=== PATIENT | male | born 1995 | race Native Hawaiian/Other Pacific Islander ===

== ENCOUNTER 2018-03-01 11:10 | Emergency (ER) | payer OTHER ==
[2018-03-01 11:31] VITALS: TEMP 98.4; BMI 22.6
--- NOTE | 2018-03-01 12:11 | ED PDOC ---
HPI: CCC, URI, Sore Throat Time Seen by Provider: 03/01/18 11:30 Chief Complaint (Nursing): ENT Problem Chief Complaint (Provider): Sore throat History Per: Patient History/Exam Limitations: no limitations Onset/Duration Of Symptoms: Days (x2) Current Symptoms Are (Timing): Still Present Location Of Pain: Throat Sick Contacts (Context): None Associated Symptoms: Fever (subjective), Cough (dry). denies: Vomiting Additional Complaint(s): 22 year old male with no significant past medical history presents to the ED complaining of sore throat onset 2 days. He reports cough and a subjective fever yesterday that is no longer present. He denies dyspnea, vomiting, abdominal pain, any sick family members, pain medication or any other medical complaint. PMD: none provided. Past Medical History Reviewed: Historical Data, Nursing Documentation, Vital Signs Vital Signs: Last Vital Signs Temp 98.4 F 03/01/18 11:31 Pulse 84 03/01/18 13:26 Resp 17 03/01/18 13:26 BP 117/64 03/01/18 13:26 Pulse Ox 99 03/01/18 13:26 - Medical History PMH: No Chronic Diseases - Surgical History Surgical History: No Surg Hx - Family History Family History: States: Unknown Family Hx - Social History Current smoker - smoking cessation education provided: No Ex-Smoker (has not smoked in the last 12 months): No Alcohol: None Drugs: Denies - Allergies Allergies/Adverse Reactions: Allergies Allergy/AdvReac Type Severity Reaction Status Date / Time No Known Allergies Allergy Verified 03/01/18 11:52 Curb-65 Severity Score - CURB-65 Severity Score Confusion: No Bun >19mg/dl (>7mmol/L): No Respiratory Rate greater than/equal to 30: No Systolic BP <90 or Diastolic BP less than/equal 60mmHg: No Curb-65 Score: 0 Percentage 30-day mortality: 0.6% Review of Systems ROS Statement: Except As Marked, All Systems Reviewed And Found Negative Constitutional: Positive for: Fever (subjective) ENT: Positive for: Throat Pain (sore) Respiratory: Positive for: Cough. Negative for: Shortness of Breath Gastrointestinal: Negative for: Vomiting, Abdominal Pain Physical Exam - Reviewed Nursing Documentation Reviewed: Yes Vital Signs Reviewed: Yes - Physical Exam Appears: Positive for: Non-toxic, No Acute Distress Head Exam: Positive for: ATRAUMATIC, NORMOCEPHALIC Skin: Positive for: Normal Color, Warm, Dry Eye Exam: Positive for: Normal appearance, EOMI, PERRL ENT: Positive for: Pharyngeal Erythema (bilateral). Negative for: Tonsillar Exudate Cardiovascular/Chest: Positive for: Regular Rate, Rhythm Respiratory: Positive for: Normal Breath Sounds. Negative for: Respiratory Distress Gastrointestinal/Abdominal: Positive for: Normal Exam Extremity: Positive for: Normal ROM Neurologic/Psych: Positive for: Alert, Oriented - ECG O2 Sat by Pulse Oximetry: 98 (RA) Pulse Ox Interpretation: Normal Medical Decision Making Medical Decision Making: Time: 12:05 Initial Impression: 22 y/o male with sore throat Initial Plan: --rapid strep Time: 13:16 --Rapid strep was negative. Diagnosis viral infection. Patient medically stable for discharge home, return to ED if symptoms persist and follow up with PMD. ---- Scribe Attestation: Documented by Ailyn Veliz, acting as a scribe for Tyesha Brown MD Provider Scribe Attestation: All medical record entries made by the Scribe were at my direction and personally dictated by me. I have reviewed the chart and agree that the record accurately reflects my personal performance of the history, physical exam, medical decision making, and the department course for this patient. I have also personally directed, reviewed, and agree with the discharge instructions and disposition. Disposition - Clinical Impression Clinical Impression: Viral illness - Patient ED Disposition Is Patient to be Admitted: No Counseled Patient/Family Regarding: Studies Performed, Diagnosis, Need For Followup - Disposition Referrals: [facility] [Outside] [facility] [Outside] Disposition: Routine/Home Disposition Time: 12:00 Condition: IMPROVED Additional Instructions: follow up with your primary doctor in 1-2 days return to the ED with any worsening or concerning symptoms take motrin for pain Instructions: Sore Throat, Adult (DC) Forms: [facility] (Surinamese)
[2018-03-01 13:28] VITALS: BP 117/64; PULSE 84; RESP 17
[2018-03-01 13:52] VITALS: O2SAT 98
== END 2018-03-01 13:26 | disposition home or self-care (01) ==
LOC: H.ER 11:10
DX: B34.9 Viral infection, unspecified (principal)